=== PATIENT | male | born 1995 | race Caucasian/White ===

== ENCOUNTER 2017-01-11 09:25 | Emergency (ER) | payer OTHER ==
[2017-01-11 10:35] LABS: BASOPHIL 0.2 % (0-2); EOSINOPHIL 3.8 % (0-5); HCT 45.5 % (42.0-52.0); HGB 16.3 g/dl (13.2-18.0); LYMPHOCYTE 24.4 % (15-48); MCH 31.2 pg (25.0-31.0); MCHC 35.8 g/dL (32.0-36.0); MCV 87.2 fL (78.0-100.0); MONOCYTE 13.1 % (0-12); MPV 9.2 fL (6.0-9.5); NEUTROPHIL 58.5 % (41-80); PLT 220 K/uL (150-400); RBC 5.22 M/uL (4.70-6.00); RDW 12.6 % (11.5-14.0); WBC 6.7 K/uL (4.0-10.5)
[2017-01-11 10:55] LABS: CREATININE 0.9 mg/dL (0.7-1.2); POTASSIUM 4.2 mmol/L (3.5-5.1)
== END 2017-01-11 12:05 | disposition home or self-care (01) ==
LOC: FER 09:25
PROVIDERS: Internal Medicine
DX: M71.22 Synovial cyst of popliteal space [Baker], left knee (principal); M54.32 Sciatica, left side
CPT/HCPCS: 36415; 71020; 80048; 84484; 85025; 85379; 93005; J1885